=== PATIENT | male | born 1950 | race Caucasian/White ===

== ENCOUNTER → 2018-10-07 | Outpatient (CLI) | payer MEDICARE, OTHER | END | disposition home or self-care (01) | LOC: PCVCCLINIC 14:10 | PROVIDERS: ATTEND Internal Medicine | DX: I25.10 Atherosclerotic heart disease of native coronary artery without angina pectoris (principal); R93.1 Abnormal findings on diagnostic imaging of heart and coronary circulation; I10 Essential (primary) hypertension; E78.2 Mixed hyperlipidemia; E11.9 Type 2 diabetes mellitus without complications; E03.9 Hypothyroidism, unspecified; Z79.84 Long term (current) use of oral hypoglycemic drugs; Z79.82 Long term (current) use of aspirin | CPT/HCPCS: 36415; 80061; 93005; G0463 ==

== ENCOUNTER → 2018-11-02 | Outpatient (CLI) | payer MEDICARE, OTHER ==
[~2018-11-02] MED LIST: REGADENOSON 0.4 MG/5 ML DISP.SYRIN. IV ONE
--- NOTE | 2018-11-02 09:29 | PCVCIMAG ---
APPROVED REPORT Study performed: 11/02/2018 08:22:30 EXAM: Comprehensive 2D, Doppler, and color-flow Echocardiogram Patient Location: Echo lab Status: routine BSA: 2.39 HR: 64 bpmBP: 120/80 mmHg Rhythm: NSR Other Information Study Quality: Good Risk Factors: Cardiac Risk Factors: HTN, Hyperlipidemia, DM Indications Elevated calcium score 2D Dimensions IVSd: 9.37 (7-11mm)LVOT Diam: 24.11 (18-24mm) LVDd: 49.74 mm PWd: 8.57 (7-11mm)Ascending Ao: 37.42 (22-36mm) LVDs: 38.05 (25-40mm) Left Atrium: 49.68 (27-40mm) Aortic Root: 32.63 mm LV Single Plane 4CH: 58.13 % LV Single Plane 2CH: 54.02 % Biplane EF: 54.8 % Volumes Left Atrial Volume (Systole) Single Plane 4CH: 48.89 mLSingle Plane 2CH: 49.70 mL LA ESV Index: 231.00 mL/m2 Aortic Valve AoV Peak Rashawn.: 1.21 m/s AO Peak Gr.: 5.90 mmHgLVOT Max P.33 mmHg LVOT Max V: 0.91 m/s BUFFY Vmax: 3.43 cm2 Mitral Valve E/A Ratio: 1.0 MV Decel. Time: 315.19 ms MV E Max Rashawn.: 0.72 m/s MV A Rashawn.: 0.72 m/s IVRT: 138.41 ms TDI E/Lateral E': 9.00E/Medial E': 10.29 Medial E' Rashawn.: 0.07 m/s Lateral E' Rashawn.: 0.08 m/s Pulmonary Valve PV Peak Gr.: 1.40 mmHg Pulmonary Vein P Vein S: 0.58 m/sP Vein A: 0.37 m/s P Vein D: 0.38 m/sP Vein A Dur.: 76.1 msec P Vein S/D Ratio: 1.53 Left Ventricle The left ventricle is normal size. There is normal LV segmental wall motion. There is normal left ventricular wall thickness. Left ventricular systolic function is normal. The left ventricular ejection fraction is within the normal range. LVEF is 60-65%. Mild diastolic dysfunction is present (impaired relaxation pattern). Right Ventricle The right ventricle is normal size. The right ventricular systolic function is normal. Atria The left atrium size is normal. The right atrium size is normal. Aortic Valve The aortic valve is normal in structure. No aortic regurgitation is present. There is no aortic valvular stenosis. Mitral Valve Mild nonspecific thickening of posterior mitral leaflet There is no mitral valve regurgitation noted. No evidence of mitral valve stenosis. Tricuspid Valve The tricuspid valve is normal in structure. There is no tricuspid valve regurgitation noted. Pulmonic Valve The pulmonary valve is normal in structure. There is no pulmonic valvular regurgitation. Great Vessels The aortic root is normal in size. IVC is normal in size and collapses >50% with inspiration. Pericardium There is no pericardial effusion. <Conclusion> Left ventricular systolic function is normal. There is normal LV segmental wall motion. LVEF is 60-65%. Mild diastolic dysfunction The aortic valve is normal in structure. No aortic regurgitation or stenosis Mild nonspecific thickening of posterior mitral leaflet. No mitral valve regurgitation. Pulmonary artery pressure could not be reliably ascertained There is no pericardial effusion.
--- NOTE | 2018-11-02 15:11 | PCVCIMAG ---
APPROVED REPORT Imaging Protocol: Rest Tc-99m/Stress Tc-99m 1 day Study performed: 11/02/2018 09:23:35 Indication: Dyspnea, High Ca Score Patient Location: Out-Patient Stress Nurse: Mary Beth Pierce RN, Amy Sanchez RN [place] Tech:Temitope DaleySUZANNE ernstMT Ht: 6 ft 2 in Wt: 250 lbs BSA: 2.39 m2 HR: 77 bpm BP: 130/76 mmHg BMI: 32.0 Rhythm: Sinus Rhythm, Sinus Rhythm, nonspecific T abnormalities Medical History Medical History: HTN, Hyperlipidemia, Diabetic Insulin, CAD Medications: ASA, Insulin, Atorvastatin, Lisinopril Allergies: No known drug allergies Cardiac Risk Factors: Age Pretest Chest Pain Characteristics: No chest pain Exercise History: Physically active Resting Data Rest SPECT myocardial perfusion imaging was performed in supine position 45 minutes following the intravenous injection of 9.9 mCi of Tc-99m Sestamibi. Time of rest injection: 0900 Date: 11/02/2018 Administration Route: IV Administration Site: Left AC Pharmacologic Stress Pharmacologic stress test was performed by injecting Regadenoson 0.4 mg IV push over 10-15 seconds immediately followed by the intravenous injection of 33.7 mCi of Tc-99m Sestamibi. Time of stress injection: 1020 Date: 11/02/2018 Administration Route: IV Administration Site: Left AC Gated Stress SPECT was performed 45 minutes after stress injection. The images were gated to evaluate regional wall motion and calculate left ventricular ejection fraction. Stress Test Details Stress Test: Pharmacologic stress was paired with low level exercise. 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 HRMax Heart Rate (APMHR): 152 bpm Resting HR: 77 bpmTarget HR (85% APMHR): 129 bpm Max HR Achieved: 111 bpm % of APMHR: 73 Recovery HR: 82 bpm BP Resting BP: 130/76 mmHg Max BP: 122/64 mmHg Recovery BP: 134/79 mmHg ECG Resting ECG: Sinus rhythm, nonspecific ST-T abnormalities Stress ECG: Sinus tachycardia, nonspecific T abnormalities ST Change: None Maximum ST Deviation: 0 mm Arrhythmia: None Recovery ECG: Sinus rhythm, nonspecific T abnormalities Recovery ST Change: Normal Recovery ST Deviation: 0 mm Clinical Reason for Termination: Completed protocol Stress Symptoms: None Exercise duration: 4 min 00 sec Highest Stage Achieved: Exercise capacity: 1.6 METs Stress ECG Conclusion ECG: Non-ischemic Clinical: Non-ischemic Study Quality Study: Good Study Data Post stress, the left ventricular ejection was 56%.. SSS: 3 SRS: 2 SDS: 1 TID = 1.16. Perfusion Small sized area of mild reversible ischemia involving the mid/basal inferolateral left ventricle consistent with a circumflex distribution. Wall Motion Normal left ventricular size and function with no regional wall motion abnormalities. Nuclear Conclusion Small sized area of mild reversible ischemia involving the mid/basal inferolateral left ventricle consistent with a circumflex distribution. Normal left ventricular size and function with no regional wall motion abnormalities. Post stress, the left ventricular ejection was 56%. No prior study available for comparison. Interpreted by: Dylan Mott MD Electronically Approved: 11/02/2018 14:50:11 <Conclusion> ECG: Non-ischemic Clinical: Non-ischemic
== END | disposition home or self-care (01) ==
LOC: PCVCCLINIC 08:07
PROVIDERS: ATTEND Internal Medicine
DX: I11.0 Hypertensive heart disease with heart failure (principal); I50.30 Unspecified diastolic (congestive) heart failure; E11.9 Type 2 diabetes mellitus without complications; E78.5 Hyperlipidemia, unspecified; R93.1 Abnormal findings on diagnostic imaging of heart and coronary circulation; R06.00 Dyspnea, unspecified
CPT/HCPCS: 78452; 93017; 93306; A9500; J2785

== ENCOUNTER → 2019-01-29 | Outpatient (CLI) | payer MEDICARE, OTHER | END | disposition home or self-care (01) | LOC: PCVCCLINIC 14:00 | PROVIDERS: ATTEND Internal Medicine | DX: R93.1 Abnormal findings on diagnostic imaging of heart and coronary circulation (principal); I10 Essential (primary) hypertension; E78.2 Mixed hyperlipidemia; E11.9 Type 2 diabetes mellitus without complications; R94.39 Abnormal result of other cardiovascular function study; E03.9 Hypothyroidism, unspecified | CPT/HCPCS: 36415; 93005; G0463 ==

== ENCOUNTER → 2019-04-09 | Outpatient (CLI) | payer MEDICARE, OTHER ==
--- NOTE | 2019-04-09 14:51 | PCVCIMAG ---
APPROVED REPORT Indications Bruit Risk Factors Hypertension: Diabetes Doppler Spectral Velocity Analysis PSV / EDVPSV / EDV ECA (R) 108 / 8 cm/sECA (L) 115 / 8 cm/s dICA (R) 52 / 14 cm/sdICA (L) 70 / 18 cm/s Valentin (R) 79 / 23 cm/smICA (L) 71 / 18 cm/s pICA (R) 55 / 15 cm/spICA (L) 93 / 15 cm/s Bulb (R) 112 / 16 cm/sBulb (L) 114 / 16 cm/s dCCA (R) 97 / 15 cm/sdCCA (L) 114 / 20 cm/s mCCA (R) 99 / 15 cm/smCCA (L) 105 / 17 cm/s Vert (R) 40 / 7 cm/sVert (L) 57 / 10 cm/s ICA/CCA 0.81ICA/CCA 0.82 Basic Measurements Blood Pressure: Pulses: Right Left RightLeft Brachial(Sitting) 110/[id number]/86mmHgTemporal Real Time B-Mode Imaging Vert. (R)AntegradeVert. (L)Antegrade Findings The right carotid bulb has no significant plaque. The right proximal internal carotid artery shows no significant stenosis. The right common carotid artery shows no significant stenosis. The right external carotid artery shows no significant stenosis. The left carotid bulb has no significant plaque. The left proximal internal carotid artery shows no significant stenosis. The left common carotid artery shows no significant stenosis. The left external carotid artery shows no significant stenosis. Conclusion 1. No significant stenosis involving either carotid artery. 2. Antegrade vertebral flow.
== END | disposition home or self-care (01) ==
LOC: PCVCIMAG 13:17
PROVIDERS: ATTEND Internal Medicine
DX: R09.89 Other specified symptoms and signs involving the circulatory and respiratory systems (principal); I25.10 Atherosclerotic heart disease of native coronary artery without angina pectoris; I10 Essential (primary) hypertension; E78.5 Hyperlipidemia, unspecified; E11.9 Type 2 diabetes mellitus without complications
CPT/HCPCS: 36415; 80061; 93005; 93880; G0463